=== PATIENT | female | born 1990 | race African-American/Black ===

== ENCOUNTER 2017-05-15 10:53 | Emergency (ER) | payer MEDICAID, OTHER ==
[~2017-05-15] VITALS: Ht 167.6 cm; Wt 59.0 kg
[~2017-05-15 10:53] MED LIST: NKM
[2017-05-15 12:50] LABS: APPEARANCE,URINE CLEAR; KETONES,URINE NEGATIVE (NEGATIVE); LEUKOCYTE ESTERASE ,URINE NEGATIVE (NEGATIVE); NITRITE,URINE NEGATIVE (NEGATIVE); PH,URINE 7 (4.5-8.0); PROTEIN,URINE NEGATIVE (NEGATIVE); UROBILINOGEN,URINE NORMAL MG/DL (0.0-1.0)
[2017-05-15] MEDS ORDERED: TYLENOL325 MG ORAL (13:06)
--- NOTE | 2017-05-15 14:47 | Emergency Room Report ---
History of Present Illness General Chief Complaint: Complications Source: Patient Present Illness HPI 27YOF walk-in with 1 spontaneous presents with LMP mid_January, recent found out she's . Has not followed up with OB Has next scheduled appointment in 2 weeks C/o intermittent generalized abd pain with nausea for 1 week Improves with Rx tylenol she has Denies urinary complaints Denies vaginal bleeding, chest pain, SOB, fever/chills, headache Allergies: Coded Allergies: No Known Allergies (Unverified , 02/16/14) Patient History Past Medical History: none Past Surgical History: none Pertinent Family History: none Social History: Denies: alcohol use, drug use, smoking Last Menstrual Period: APIRL Now: Yes : 4 Para: 3 Immunizations: UTD Reviewed Nursing Documentation: PMH: Agreed, PSxH: Agreed Nursing Documentation-PMH Past Medical History: No Stated History Review of Systems All Other Systems: negative except mentioned in HPI Physical Exam Vital Signs Date Time Temp Pulse Resp B/P Pulse Ox O2 Delivery O2 Flow Rate FiO2 05/15/17 11:02 98.2 83 20 101/63 96 Room Air Sp02 EP Interpretation: reviewed, normal General Appearance: normal inspection, well appearing, no apparent distress, alert, GCS 15, non-toxic Head: normocephalic, atraumatic Eyes: bilateral eye EOMI, bilateral eye PERRL ENT: normal ENT inspection, hearing grossly normal, normal voice Neck: normal inspection, full range of motion, supple, no bony tend Respiratory: normal inspection, lungs clear, normal breath sounds, no respiratory distress, no retraction, no wheezing Cardiovascular #1: regular rate, rhythm, no edema Gastrointestinal: normal inspection, normal bowel sounds, non tender, soft, no guarding, no hernia, other - Grossly non-focal on exam Genitourinary: no CVA tenderness, other - Gravid uterus. Musculoskeletal: normal inspection, back normal, normal range of motion, Jason' s Sign negative Neurologic: normal inspection, alert, oriented x3, responsive, neon pumper III-XII nml as tested, motor strength/tone normal, speech normal Psychiatric: normal inspection Skin: normal inspection, normal color, no rash Lymphatic: normal inspection Medical Decision Making Diagnostic Impression: Primary Impression: Abdominal pain Qualified Codes: R10.84 - Generalized abdominal pain ER Course urine preg positive UA grossly normal Tylenol and zofran given for symptoms Abd exam is non focal Patient in no acute distress, laughing, playing with kids, other family members in ED who area also patients I offered to do pelvic sono to eval but patient was upset at having to wait, cursed me out with foul language and threatened physical harm to me by other family members/friends and left ER Last Vital Signs Date Time Temp Pulse Resp B/P Pulse Ox O2 Delivery O2 Flow Rate FiO2 05/15/17 11:02 98.2 83 20 101/63 96 Room Air Status: improved Disposition: HOME, SELF-CARE Condition: Improved Scripts Acetaminophen (Tylenol) 325 Mg Tablet 650 MG ORAL Q6H Y for Prn Pain/Headache/Temp > 101 for 7 Days, #30 TAB 0 Refills Prov: SHILOH PEREIRA M.D. 05/15/17 Patient Instructions: Labor Information Additional Instructions: - Take tylenol only for pain - Return to ER for worsening pain, vaginal bleeding - Follow up with your scheduled appointment for pre-srini care and sonogram SHILOH PEREIRA M.D. May 15, 2017 14:46
[2017-05-15 15:04] VITALS: BP 101/63
== END 2017-05-15 13:30 | disposition home or self-care (01) ==
LOC: EMR 11:28
DX: O26.91 Pregnancy related conditions, unspecified, first trimester (principal); R10.9 Unspecified abdominal pain
CPT/HCPCS: 81003; 81025; 99283

== ENCOUNTER 2017-06-25 08:23 | Emergency (ER) | payer OTHER ==
[~2017-06-25] VITALS: Ht 167.6 cm; Wt 63.5 kg
[~2017-06-25 08:23] MED LIST changes: +TYLENOL325 MG ORAL
[2017-06-25 08:26] VITALS: BP 103/66
[2017-06-25] MEDS ORDERED: PRENATAL VITS (08:39)
[2017-06-25 09:00] LABS: APPEARANCE,URINE CLEAR; KETONES,URINE NEGATIVE (NEGATIVE); LEUKOCYTE ESTERASE ,URINE NEGATIVE (NEGATIVE); NITRITE,URINE NEGATIVE (NEGATIVE); PH,URINE 8 (4.5-8.0); PROTEIN,URINE NEGATIVE (NEGATIVE); UROBILINOGEN,URINE NORMAL MG/DL (0.0-1.0)
[2017-06-25 09:06] LABS: BASOPHILS % (AUTO) 0.8 % (0.0-2.0); EOSINOPHILS % (AUTO) 2.7 % (0.0-3.0); LYMPHOCYTES % (AUTO) 22.6 % (20.0-45.0); MEAN CORPUSCULAR HEMOGLOBIN 31.3 PG (27.0-31.0); MEAN CORPUSCULAR HGB CONC 33.2 G/DL (32.0-36.0); MEAN CORPUSCULAR VOLUME 94 FL (80-99); MEAN PLATELET VOLUME 8.2 FL (6.5-10.1); MONOCYTES % (AUTO) 10.6 % (1.0-10.0); NEUTROPHILS % (AUTO) 63.2 % (45.0-75.0); PLATELET COUNT 178 K/UL (150-450); RED BLOOD COUNT 3.71 M/UL (4.20-5.40); RED CELL DISTRIBUTION WIDTH 12.3 % (11.6-14.8); WHITE BLOOD COUNT 4.6 K/UL (4.8-10.8)
[2017-06-25 09:14] LABS: ALANINE AMINOTRANSFERASE 5 U/L (3-33); ANION GAP 9 (5-15); ASPARTATE AMINO TRANSFERASE 11 U/L (5-40); CALCIUM 8.8 mg/dL (8.6-10.2); CARBON DIOXIDE 24 mEQ/L (20-30); CHLORIDE 102 mEQ/L (98-107); CREATININE 0.6 mg/dL (0.5-0.9); GLOMERULAR FILTRATION RATE > 60 mL/min (>60); HEMOLYSIS 3; LIPASE 21 U/L (< 60); POTASSIUM 3.8 mEQ/L (3.4-4.9); SODIUM 135 mEQ/L (135-145); TOTAL PROTEIN 6.7 g/dL (6.6-8.7)
[2017-06-25 09:18] LABS: BACTERIA,URINE FEW /HPF; SQUAMOUS EPITHELIAL CELL,UR FEW /LPF (NONE/OCC); WBC,URINE 0-2 /HPF (0 - 2)
--- NOTE | 2017-06-25 09:23 | Emergency Room Report ---
History of Present Illness General Chief Complaint: Complications Source: Patient Present Illness HPI 27-year-old female presents to ED for evaluation. Patient states she is approximately 5 months . States that today she noticed some spotting. Denies any abdominal pain. States she noticed spotting approximately 2 weeks ago which since resolved. Denies any vaginal bleeding or discharge. Patient states she does received care. Denies fevers or chills. Denies nausea or vomiting. No other aggravating relieving factors. Denies any other associated symptoms Allergies: Coded Allergies: No Known Allergies (Unverified , 02/16/14) Patient History Past Medical History: none Past Surgical History: none Pertinent Family History: none Social History: Denies: smoking, alcohol use, drug use Last Menstrual Period: 02/11/17 Now: Yes : 5 Para: 2 Immunizations: UTD Reviewed Nursing Documentation: PMH: Agreed, PSxH: Agreed Nursing Documentation-PMH Past Medical History: No Stated History Review of Systems All Other Systems: negative except mentioned in HPI Physical Exam Vital Signs Date Time Temp Pulse Resp B/P (MAP) Pulse Ox O2 Delivery O2 Flow Rate FiO2 06/25/17 08:26 97.2 91 16 103/66 98 Room Air Sp02 EP Interpretation: reviewed, normal General Appearance: no apparent distress, alert, GCS 15, non-toxic Head: normocephalic, atraumatic Eyes: bilateral eye normal inspection, bilateral eye PERRL ENT: hearing grossly normal, normal pharynx, no angioedema, normal voice Neck: full range of motion, supple/symm/no masses Respiratory: chest non-tender, lungs clear, normal breath sounds, speaking full sentences Cardiovascular #1: regular rate, rhythm, no edema Cardiovascular #2: 2+ carotid (R), 2+ carotid (L), 2+ radial (R), 2+ radial (L) , 2+ dorsalis pedis (R), 2+ dorsalis pedis (L) Gastrointestinal: normal bowel sounds, non tender, soft, non-distended, no guarding, no rebound Rectal: deferred Genitourinary: normal inspection, no CVA tenderness Musculoskeletal: back normal, gait/station normal, normal range of motion, non- tender Neurologic: alert, oriented x3, responsive, motor strength/tone normal, sensory intact, speech normal Psychiatric: judgement/insight normal, memory normal, mood/affect normal, no suicidal/homicidal ideation Reflexes: 3+ bicep (R), 3+ bicep (L), 3+ tricep (R), 3+ tricep (L), 3+ knee (R) , 3+ knee (L) Skin: normal color, no rash, warm/dry, well hydrated Lymphatic: no adenopathy Medical Decision Making Diagnostic Impression: Primary Impression: Threatened ER Course Hospital Course 27-year-old F presents to ED complaining of vaginal bleeding. approxiamtely 20 weeks pregant Differential diagnoses include: gastrits, gastroenterits, ectopic , ovarian torsion/cyst, UTI Clinical course Patient placed on stretcher in ED. After initial history and physical I ordered labs, IV fluids and pelvic ultrasound. Labs-no leukocytosis, electrolytes okay, beta hCG > 40,000, UA unremarkable OB US shows IUP approximately 20 weeks. +FHR. no bleed or previa. Clinically, findings consistent with threatened . Now the patient is approximately 20 weeks I recommend followup with [facility] and if patient should continue to have bleeding she is to followup with hospital at labor and delivery and monitoring Diagnosis - threatened Stable and discharged to home with Rx vitamins, Tylenol. Followup with PMD/[facility]. Return to ED if symptoms recur or worsen Labs Test 06/25/17 08:51 White Blood Count 4.6 K/UL (4.8-10.8) Red Blood Count 3.71 M/UL (4.20-5.40) Hemoglobin 11.6 G/DL (12.0-16.0) Hematocrit 34.9 % (37.0-47.0) Mean Corpuscular Volume 94 FL (80-99) Mean Corpuscular Hemoglobin 31.3 PG (27.0-31.0) Mean Corpuscular Hemoglobin Concent 33.2 G/DL (32.0-36.0) Red Cell Distribution Width 12.3 % (11.6-14.8) Platelet Count 178 K/UL (150-450) Mean Platelet Volume 8.2 FL (6.5-10.1) Neutrophils (%) (Auto) 63.2 % (45.0-75.0) Lymphocytes (%) (Auto) 22.6 % (20.0-45.0) Monocytes (%) (Auto) 10.6 % (1.0-10.0) Eosinophils (%) (Auto) 2.7 % (0.0-3.0) Basophils (%) (Auto) 0.8 % (0.0-2.0) Urine Color Pale yellow Urine Appearance Clear Urine pH 8 (4.5-8.0) Urine Specific Bassett 1.010 (1.005-1.035) Urine Protein Negative (NEGATIVE) Urine Glucose (UA) Negative (NEGATIVE) Urine Ketones Negative (NEGATIVE) Urine Occult Blood 5+ (NEGATIVE) Urine Nitrite Negative (NEGATIVE) Urine Bilirubin Negative (NEGATIVE) Urine Urobilinogen Normal MG/DL (0.0-1.0) Urine Leukocyte Esterase Negative (NEGATIVE) Urine RBC 5-10 /HPF (0 - 2) Urine WBC 0-2 /HPF (0 - 2) Urine Squamous Epithelial Cells Few /LPF (NONE/OCC) Urine Bacteria Few /HPF (NONE) Urine HCG, Qualitative Positive Sodium Level 135 mEQ/L (135-145) Potassium Level 3.8 mEQ/L (3.4-4.9) Chloride Level 102 mEQ/L (98-107) Carbon Dioxide Level 24 mEQ/L (20-30) Anion Gap 9 (5-15) Blood Urea Nitrogen 11 mg/dL (7-23) Creatinine 0.6 mg/dL (0.5-0.9) Estimat Glomerular Filtration Rate > 60 mL/min (>60) Glucose Level 81 mg/dL (74-106) Calcium Level 8.8 mg/dL (8.6-10.2) Total Bilirubin < 0.2 mg/dL (0.0-1.2) Aspartate Amino Transf (AST/SGOT) 11 U/L (5-40) Alanine Aminotransferase (ALT/SGPT) 5 U/L (3-33) Alkaline Phosphatase 46 U/L (35-104) Total Protein 6.7 g/dL (6.6-8.7) Albumin 3.5 g/dL (3.5-5.2) Globulin 3.2 g/dL Albumin/Globulin Ratio 1.0 (1.0-2.7) Lipase 21 U/L (< 60) CT/MRI/US Diagnostic Results CT/MRI/US Diagnostic Results : Imaging Test Ordered: OB US Impression IUP approximately 19 weeks 6 days, FHR 139. no bleeding. no previa Last Vital Signs Date Time Temp Pulse Resp B/P (MAP) Pulse Ox O2 Delivery O2 Flow Rate FiO2 06/25/17 08:26 97.2 91 16 103/66 98 Room Air Status: improved Disposition: HOME, SELF-CARE Condition: Stable Scripts Vits W-Ca,Fe,Fa(<1MG) ( VITAMINS) 1 Each Tablet 1 EACH PO DAILY, #30 TAB Prov: AUDI CURRIE M.D. 06/25/17 Acetaminophen* (ACETAMINOPHEN 325MG TABLET*) 325 Mg Tablet 650 MG ORAL Q6H Y for For Pain, #30 TAB Prov: AUDI CURRIE M.D. 06/25/17 Referrals: [facility] GOVEA,REFERRING (PCP) AUDI CURRIE M.D. Jun 25, 2017 09:23
[2017-06-25 10:08] VITALS: BP 109/64
[2017-06-25 10:16] VITALS: BP 109/64
[2017-06-25] MEDS ORDERED: ACETAMINOPHEN325 M1 ORAL (10:32)
[2017-06-25] MEDS ORDERED: PRENATAL VITAM1 EACH PO (10:32)
--- NOTE | 2017-06-25 13:04 | Diagnostic Imaging Report ---
Indication:Abdominal pelvic pain. Vaginal bleeding Technique: Grayscale and duplex Doppler imaging of the pelvis performed utilizing a transabdominal scan and endovaginal scan. Comparison: None Findings: Single living intrauterine demonstrated. Placenta is posterior. Amniotic fluid is within normal limits. The fetus was measured using sonographic criteria and gestational age is 19 weeks 6 days. This corresponds to the clinical age based on the last menstrual period of 19 weeks one day. heart rate is 139 beats per minute. measurements were obtained as follows: Biparietal diameter 43.2 mm, 19 weeks Head circumference 174 mm, 19 weeks 6 days Abdominal circumference 153 mm, 20 weeks 4 days. Femur length 31 mm, 19 weeks 5 days Estimated weight 334 g plus or -52 g. Presentation is currently breech. NURIS is 22 cm. There is no placenta previa. anatomic survey was performed. There are no obvious abnormalities identified. Three-vessel cord noted. 4 chamber heart noted. Cervical length is 4.5 cm. stomach, bladder and kidneys are unremarkable. Active movement noted. Impression: Single living intrauterine in breech presentation with gestational age estimated at 19 weeks 6 days. Grossly unremarkable anatomic survey. Consider followup level II ultrasound. Note: A negative ultrasound evaluation does not insure well-being or positive outcome for the . monitoring including a nonstress test may be needed and clinical evaluation by RE EXAMINER is highly recommended.
== END 2017-06-25 10:34 | disposition home or self-care (01) ==
LOC: EMR 08:40
DX: O20.0 Threatened abortion (principal); Z3A.20 20 weeks gestation of pregnancy
CPT/HCPCS: 36415; 76805; 80053; 81003; 81025; 83690; 84702; 85025; 99284

== ENCOUNTER 2018-11-27 08:08 | Emergency (ER) | payer MEDICAID, OTHER ==
[~2018-11-27] VITALS: Ht 167.6 cm; Wt 59.0 kg
[~2018-11-27 08:08] MED LIST changes: +ACETAMINOPHEN325 M1 ORAL; +PRENATAL VITAM1 EACH PO; +PRENATAL VITS
[2018-11-27 08:18] VITALS: BP 107/67
--- NOTE | 2018-11-27 08:21 | NUR ---
ED Nurse Note: A/Ox4. Ambulated in to ER from home due to N/V and abdominal cramping pain 06/06 x 3 days. Last meal was yesterday-oatmeal. Denies bloody stool nor diarrhea. Will continue to monitor.
--- NOTE | 2018-11-27 08:23 | NUR ---
ED Nurse Note: pt reports that last vomit was this morning and emesis was clear mucus and fluid.
--- NOTE | 2018-11-27 08:35 | NUR ---
ED Nurse Note: blood specimen and urine collected and sent down to the lab. Per pt, she gave in the beginning of October this year.
--- NOTE | 2018-11-27 08:50 | Emergency Room Report ---
History of Present Illness General Chief Complaint: Abdominal Pain Source: Patient Present Illness HPI 28-year-old female with no medical problems major surgeries presents with mild diffuse abdominal pain this to achy type pain and crampy that happens just before she vomits, pathology report vomiting, some happening intermittently for 3 days, patient feels dehydrated., Vaginal bleeding, vaginal discharge, dysuria , hematuria, frequency, and reports that a daughter of hers had similar vomiting illness, and other family members had last week as well, she denies any diarrhea, fevers, shortness of breath, any other complaints, and is not sure whether or not she is but she did not think so. Allergies: Coded Allergies: No Known Allergies (Unverified , 11/27/18) Patient History Past Medical History: see triage record Last Menstrual Period: Sep 2018 Reviewed Nursing Documentation: PMH: Agreed; PSxH: Agreed Nursing Documentation-PMH Past Medical History: No Stated History Review of Systems All Other Systems: negative except mentioned in HPI Physical Exam Vital Signs Date Time Temp Pulse Resp B/P (MAP) Pulse Ox O2 Delivery O2 Flow Rate FiO2 11/27/18 08:16 99.0 80 19 107/67 100 Room Air Sp02 EP Interpretation: reviewed, normal General Appearance: no apparent distress, alert, non-toxic Head: normocephalic Eyes: bilateral eye normal inspection, bilateral eye PERRL, bilateral eye EOMI ENT: normal ENT inspection, hearing grossly normal, normal pharynx, no angioedema, normal voice, moist mucus membranes Neck: normal inspection, full range of motion, supple, supple/symm/no masses Respiratory: chest non-tender, lungs clear, normal breath sounds, no rhonchi, no respiratory distress, no retraction, no accessory muscle use, chest symmetrical, palpation of chest normal Cardiovascular #1: normal peripheral pulses, regular rate, rhythm, no edema, no gallop, no JVD, no murmur, no rub Cardiovascular #2: 2+ radial (R), 2+ radial (L), 2+ dorsalis pedis (R), 2+ dorsalis pedis (L) Gastrointestinal: normal inspection, non tender, soft, no mass, no guarding, no rebound Rectal: deferred Genitourinary: normal inspection, no CVA tenderness Musculoskeletal: back normal, gait/station normal, normal range of motion, non- tender, no calf tenderness, Jason's Sign negative Neurologic: alert, responsive, box bender III-XII nml as tested, motor strength/tone normal, sensory intact, speech normal Psychiatric: judgement/insight normal, memory normal, mood/affect normal, no suicidal/homicidal ideation Skin: normal color, no rash, warm/dry, normal turgor Lymphatic: no adenopathy Medical Decision Making Diagnostic Impression: Primary Impression: UTI (urinary tract infection) ER Course Patient had normal labs, but urine evidence for UTI, negative test, I do not suspect pyelonephritis, she has no CVA tenderness or back pain, I think her nausea and vomiting are secondary to viral gastro, will dc with madelyn anderson. Last Vital Signs Date Time Temp Pulse Resp B/P (MAP) Pulse Ox O2 Delivery O2 Flow Rate FiO2 11/27/18 08:18 99.0 82 19 107/67 100 Room Air Disposition: HOME, SELF-CARE Condition: Stable Referrals: [facility],REFERR (PCP) CATHY ACOSTA M.D Nov 27, 2018 08:50
[2018-11-27 09:04] LABS: ANION GAP 7 mmol/L (5-15); BLOOD UREA NITROGEN 14 mg/dL (7-18); CARBON DIOXIDE 28 MMOL/L (21-32); CHLORIDE 104 MMOL/L (98-107); CREATININE 0.8 MG/DL (0.55-1.30); POTASSIUM 3.7 MMOL/L (3.5-5.1); SODIUM 139 MMOL/L (136-145)
[2018-11-27 09:06] LABS: APPEARANCE,URINE CLEAR; BASOPHILS % (AUTO) 1.4 % (0.0-2.0); BILIRUBIN, URINE NEGATIVE (NEGATIVE); EOSINOPHILS % (AUTO) 0.4 % (0.0-3.0); GLUCOSE, URINE (UA) NEGATIVE (NEGATIVE); HEMATOCRIT 40.7 % (37.0-47.0); HEMOGLOBIN 13.4 G/DL (12.0-16.0); KETONES,URINE 1+ (NEGATIVE); LEUKOCYTE ESTERASE ,URINE 1+ (NEGATIVE); LYMPHOCYTES % (AUTO) 13.3 % (20.0-45.0); MEAN CORPUSCULAR VOLUME 93 FL (80-99); MONOCYTES % (AUTO) 10.2 % (1.0-10.0); NEUTROPHILS % (AUTO) 74.8 % (45.0-75.0); NITRITE,URINE POSITIVE (NEGATIVE); PH,URINE 6.5 (4.5-8.0); PLATELET COUNT 210 K/UL (150-450); PROTEIN,URINE 1+ (NEGATIVE); RED BLOOD COUNT 4.38 M/UL (4.20-5.40); RED CELL DISTRIBUTION WIDTH 12.7 % (11.6-14.8); UROBILINOGEN,URINE 1 MG/DL (0.0-1.0); WHITE BLOOD COUNT 4.2 K/UL (4.8-10.8)
[2018-11-27 09:08] LABS: ALANINE AMINOTRANSFERASE 15 U/L (12-78); ALBUMIN 3.8 G/DL (3.4-5.0); ALKALINE PHOSPHATASE 56 U/L (46-116); ASPARTATE AMINO TRANSFERASE 15 U/L (15-37); BILIRUBIN,TOTAL 0.8 MG/DL (0.2-1.0)
[2018-11-27 09:18] LABS: COLOR,URINE YELLOW
[2018-11-27] MEDS ORDERED: REGLAN10 MG ORAL (09:26)
[2018-11-27] MEDS ORDERED: CEPHALEXIN500 MG ORAL (09:26)
[2018-11-27 09:34] VITALS: BP 113/56
--- NOTE | 2018-11-27 09:35 | NUR ---
ED Nurse Note: A/Ox4. Pt is cleared by Dr. Manuel. DC instruction and prescription given, pt verbalized understanding. ID wrist band and IV removed. All belongings given to pt. Pt denies any pain at this time. Pt ambulated out of ER with steady gait.
== END 2018-11-27 09:37 | disposition home or self-care (01) ==
LOC: EMR 08:30
DX: N39.0 Urinary tract infection, site not specified (principal)
CPT/HCPCS: 36415; 80053; 81003; 81025; 83690; 85025; 87086; 87181; 99284